=== PATIENT | female | born 1980 | race Caucasian/White ===

== ENCOUNTER 2019-11-11 12:51 | Emergency (ER) | payer MEDICAID ==
[~2019-11-11] VITALS: Ht 152.4 cm; Wt 78.0 kg
--- NOTE | 2019-11-11 12:57 | NUR ---
Patient ambulated to bed 7
[2019-11-11 13:04] VITALS: BP 140/91
--- NOTE | 2019-11-11 13:08 | NUR ---
39 y/o female from home c/o left calf pain s/p fall yesterday. Pt states she got out of truck and placed all weight on left leg causing fall. Abrasion to left knee noted. Minor swelling to calf noted, no discoloration. 8/10 pain, worse with ambulation. Referred from Urgent Care to rule out DVT. Able to ambulate with limping gait. Positioned for comfort, VSS medhx: Migraines
--- NOTE | 2019-11-11 13:08 | NUR ---
Note undone in EDM - 11/11/19 at 1419 by [email or web address] 39 y/o male from home c/o left calf pain s/p fall yesterday. Pt states she got out of truck and placed all weight on left leg causing fall. Abrasion to left knee noted. Minor swelling to calf noted, no discoloration. 8/10 pain, worse with ambulation. Referred from Urgent Care to rule out DVT. Able to ambulate with limping gait. Positioned for comfort, VSS medhx: Migraines
--- NOTE | 2019-11-11 13:11 | NUR ---
Dr Lee at bedside examining pt
--- NOTE | 2019-11-11 13:27 | NUR ---
central supply tech at bedside.
[2019-11-11] MEDS ORDERED: ACETAMINOPHEN 325 MG TAB PO SCH (13:40)
[2019-11-11] MEDS ORDERED: IBUPROFEN 600 MG TAB PO SCH (13:40)
--- NOTE | 2019-11-11 13:46 | NUR ---
Ultrasound at bedside.
--- NOTE | 2019-11-11 14:43 | NUR ---
Pt ambulated to restroom with steady gait.
--- NOTE | 2019-11-11 15:17 | NUR ---
Dr Lee at bedside re-evaluating pt
[2019-11-11 16:04] VITALS: BP 136/88
--- NOTE | 2019-11-11 16:04 | NUR ---
Patient discharged with v/s stable. Written and verbal after care instructions given and explained. Patient alert, oriented and verbalized understanding of instructions. Ambulatory with steady gait. All questions addressed prior to discharge. ID band removed. Patient advised to follow up with PMD. Rx of Motrin 600mg given. Patient educated on indication of medication including possible reaction and side effects. Opportunity to ask questions provided and answered.
== END 2019-11-11 16:04 | disposition home or self-care (01) ==
LOC: MED 12:51
DX: M25.562 Pain in left knee (principal); M79.622 Pain in left upper arm; W18.39XA Other fall on same level, initial encounter; Y93.89 Activity, other specified; Y92.89 Other specified places as the place of occurrence of the external cause; Y99.8 Other external cause status
CPT/HCPCS: 73562; 90471; 90715; 93971; 99284; Q0092